=== PATIENT | male | born 1960 | race Caucasian/White ===

== ENCOUNTER → 2016-04-25 | Outpatient (REF) | LOC: WSOH 09:36 | DX: Z02.89 Encounter for other administrative examinations (principal) ==

== ENCOUNTER 2023-01-15 05:44 | Day surgery (SDC) | payer BC ==
[~2023-01-15] VITALS: Ht 188 cm; Wt 100.8 kg
[2023-01-15] VITALS (17 sets, daily range): BP systolic 111–143; BP diastolic 59–87; PULSE 50–84; TEMP 97.7–98.2
[2023-01-15] MEDS ORDERED: COREG 25MG25 MG/TAB PO (06:07)
[2023-01-15] MEDS ORDERED: HYZAAR 25 MG-101 TAB PO (06:08)
--- NOTE | 2023-01-15 10:30 | NUR ---
Patient arrived to room 330 from pacu at 1020. Patient alert and oriented. Lungs CTA, bowel sounds hypoactive. IVF infusing via right wrist with no redness or drainage noted. Pulses presents. Patient does not have sensation and wiggle toes as of yet. Patient denies pain at this time. SCD in use. Patient oriented to room and the use of call reno.
--- NOTE | 2023-01-15 11:11 | NUR ---
Public Transportation InspectorKelly notified of patient's order for Incentive Spirometer use.
--- NOTE | 2023-01-15 23:09 | NUR ---
Patient assessed around 2054. Reported pain to be at a 1 at that time. Reports being able to move well with assistance. Hemovac to left knee emptied, 110 mls of bloody drainage. Dressing to left leg CDI. INT to right forearm. Patient voices no questions, needs, or concerns at this time. In bed with call light within reach. High fall risk precautions in place. Bed alarm on.
[2023-01-16] VITALS (7 sets, daily range): BP systolic 111–133; BP diastolic 63–72; PULSE 65–73; TEMP 98.1–98.7
--- NOTE | 2023-01-16 06:03 | NUR ---
Patient had 235 mls of bloody drainage from hemovac this shift. Received scheduled Acetaminophen per orders. No PRN pain medication needed this shift. Voices no questions, needs, or concerns at this time. In bed with call light within reach.
[2023-01-16 06:21] LABS: HEMOGLOBIN 12.3 g/dl (13.5-18.0)
[2023-01-16 06:24] LABS: HEMATOCRIT 34.9 % (42.0-52.0)
[2023-01-16 06:36] LABS: CREATININE, serum 1.13 mg/dL (0.72-1.25); POTASSIUM 3.7 mmol/L (3.5-4.5)
--- NOTE | 2023-01-16 07:50 | NUR ---
Shift assessment complete. VSS. Patient awake upon arrival making section 8 property manager phone calls then ambulated to bathroom and then recliner well w/ little assist. Lft. knee incision w/ gauze and sara bandage CDI hemovac in place upon w/ minimal dark red drainage upon arrival and then removed by surgeon jerry morning assessment. Patient tolerated well. Breakfast ordered. Patient has no complaints or request at this time. Call light in reach.
[2023-01-16] MEDS ORDERED: NORCO 325 MG-51 TAB PO (08:13)
[2023-01-16] MEDS ORDERED: CEPHALEXIN500 M1 PO (08:13)
[2023-01-16] MEDS ORDERED: ASPIRIN 81M81 MG/TA2 PO (08:13)
[2023-01-16] MEDS ORDERED: ULTRAM 50MG TAB50 MG PO (08:14)
--- NOTE | 2023-01-16 11:06 | NUR ---
Patient sitting in recliner resting. Just finished with PT ambulating the halls and stairs with stand by assist, tolerated well. Complains of pain 3/10 with movment and 0/10 when resting. Patient has no request at this time. call light in reach. Reported progress to primary nurse.
--- NOTE | 2023-01-16 11:58 | NUR ---
Initial visit: Weight Loss Consultant stopped by room on rounds. Pt was resting and content. Pt has no needs right now. Weight Loss Consultant will follow up as needed.
--- NOTE | 2023-01-16 15:10 | NUR ---
WALKER ORDER COMPLETE, PT TO SIGNALS COLLECTION TECHNICIAN ON WAY HOME.
== END 2023-01-16 15:14 | disposition home or self-care (01) ==
LOC: SDCO 05:44 → SURG 10:15 → SDCO 01-16 15:14
PROVIDERS: Physician Assistant
DX: M17.12 Unilateral primary osteoarthritis, left knee (principal); I10 Essential (primary) hypertension; Z79.899 Other long term (current) drug therapy
CPT/HCPCS: OP; A9284; C1713; C1776; J0690; J1100; J1580; J1885; J2250; J2270; J2405; J2704; J2795; J7030; J7120

== ENCOUNTER 2023-09-27 20:31 | Emergency (ER) | payer BC ==
[~2023-09-27] VITALS: Ht 185.4 cm; Wt 97.7 kg
[~2023-09-27 20:31] MED LIST: ASPIRIN 81M81 MG/TA2 PO; CEPHALEXIN500 M1 PO; COREG 25MG25 MG/TAB PO; HYZAAR 25 MG-101 TAB PO; NORCO 325 MG-51 TAB PO; ULTRAM 50MG TAB50 MG PO
[2023-09-27 20:45] VITALS: BP 144/80; TEMP 97.8
[2023-09-27 21:52] VITALS: PULSE 79
== END 2023-09-27 21:53 | disposition home or self-care (01) ==
LOC: COL.ER 20:31
DX: S43.101A Unspecified dislocation of right acromioclavicular joint, initial encounter (principal); W01.0XXA Fall on same level from slipping, tripping and stumbling without subsequent striking against object, initial encounter; Y93.H9 Activity, other involving exterior property and land maintenance, building and construction